=== PATIENT | female | born 1985 | race Caucasian/White ===

== ENCOUNTER 2016-12-13 17:13 | Emergency (ER) | payer MEDICAID ==
[~2016-12-13] VITALS: Ht 165.1 cm; Wt 65.8 kg
[2016-12-13 17:17] VITALS: BP 123/95
--- NOTE | 2016-12-13 17:25 | NUR ---
Patient ambulated to bed 7. RN evaluating patient at bedside.
--- NOTE | 2016-12-13 17:38 | NUR ---
PT PRESENTS TO ER W/C/O VAGINAL/PELVIC PAIN X3 DAYS.PT STATES SHE HAS PAINFUL URINATION.DENIES FEVER/CP/SOB;AAOX4;NO ACUTE DISTRESS NOTED AT THIS TIME;SKIN IS PINK,WARM TO TOUCH AND DRY;POSITION FOR COMFORT;HOB ELEVATED;NEEDS ATTENDED;SAFETY MEASURES DONE;MD MADE AWARE OF PT'S CONDITION.
--- NOTE | 2016-12-13 17:42 | NUR ---
DR MIRANDA AT BEDSIDE
--- NOTE | 2016-12-13 17:45 | NUR ---
US AT BEDSIDE
[2016-12-13] MEDS ORDERED: MECLIZINE 25 MG TAB PO ONE (18:05)
--- NOTE | 2016-12-13 18:34 | NUR ---
PT LYING ON BED COMFORTABLY;NO ACUTE DISTRESS NOTED AT THIS TIME;WILL CONTINUE TO MONITOR PT.
[2016-12-13] MEDS ORDERED: cefTRIAXone 250 MG in LIDOCAINE 1% ED 0.9 ML IM ONE (18:35)
[2016-12-13] MEDS ORDERED: AZITHROMYCIN 250 MG TAB PO ONE (18:35)
[2016-12-13] MEDS ORDERED: fentaNYL 0.05 MG/ML VIAL IM ONE (18:35)
--- NOTE | 2016-12-13 19:27 | NUR ---
Patient discharged with v/s stable. Written and verbal after care instructions given and explained. Patient alert, oriented and verbalized understanding of instructions. Ambulatory with steady gait. All questions addressed prior to discharge. ID band removed. Patient advised to follow up with PMD. Rx of MIRALAX,MOTRIN,NORCO,AND BACTRIM given. Patient educated on indication of medication including possible reaction and side effects. Opportunity to ask questions provided and answered.
[2016-12-13 19:29] VITALS: BP 123/95
== END 2016-12-13 19:29 | disposition home or self-care (01) ==
LOC: MED 17:13
DX: N39.0 Urinary tract infection, site not specified (principal); K59.00 Constipation, unspecified
CPT/HCPCS: 76856; 81002; 81025; 96372; 99284; J0696; J2001; J3010; Q0092

== ENCOUNTER 2019-04-22 19:07 | Emergency (ER) | payer MEDICAID ==
[~2019-04-22] VITALS: Ht 162.6 cm; Wt 68.0 kg
[2019-04-22 19:16] VITALS: BP 129/89
--- NOTE | 2019-04-22 19:16 | NUR ---
TO BED # 09 AMBULATORY
[2019-04-22] MEDS ORDERED: KETOROLAC 30 MG/ML VIAL IM ONE ×2 (19:30→22:00)
--- NOTE | 2019-04-22 19:30 | NUR ---
PT PRESENTED TO ED C/O LOWER ABDOMINAL PAIN 04/22 THAT RADIATES TO THE BACK, C/O PAIN UPON URINATION WITH NAUSEA, BLOATING, NO VOMITING, NO DIARRHEA, FEELING FATIGUE FOR 5 DAYS. AAOX4, GCS 15, RR EVEN UNLABORED, ABDOMEN SOFT TO TOUCH, ED MD DR PINTO MADE AWARE, WILL CONTINUE TO MONITOR CLOSELY, BED IN LOWEST POSITION, SIDERAIL UP.
--- NOTE | 2019-04-22 19:41 | NUR ---
US AT BEDSIDE.
--- NOTE | 2019-04-22 22:02 | NUR ---
X-Ray at bedside.
--- NOTE | 2019-04-22 22:02 | NUR ---
XRAY AT BEDSIDE.
--- NOTE | 2019-04-22 22:25 | NUR ---
Dr. Jacinto examining patient.
[2019-04-22 22:35] VITALS: BP 128/76
--- NOTE | 2019-04-22 22:35 | NUR ---
Patient discharged with v/s stable. Written and verbal after care instructions given and explained. Patient alert, oriented and verbalized understanding of instructions. Ambulatory with steady gait. All questions addressed prior to discharge. ID band removed. Patient advised to follow up with PMD. Rx of BENTYL 20MG AND NAPROSYN 500MG given. Patient educated on indication of medication including possible reaction and side effects. Opportunity to ask questions provided and answered.
[2019-04-25 06:07] LABS: CHLAMYDIA TRACHOMATIS AMP DNA Negative (Negative)
== END 2019-04-22 22:35 | disposition home or self-care (01) ==
LOC: MED 19:07
DX: N83.202 Unspecified ovarian cyst, left side (principal); N83.201 Unspecified ovarian cyst, right side
CPT/HCPCS: 36415; 74018; 76830; 81002; 81025; 96372; 99284; J1885; Q0092; 87491

== ENCOUNTER 2019-11-07 08:48 | Emergency (ER) | payer MEDICAID ==
[~2019-11-07] VITALS: Ht 162.6 cm; Wt 63.5 kg
[2019-11-07 08:53] VITALS: BP 127/81
--- NOTE | 2019-11-07 08:59 | NUR ---
RECEIVED A 34/F FROM [facility] FOR COLD S/SX X 4 DAYS. PT REPORTS THAT SHE HAS BEEN CONGESTED WITH COUGH AND GENERALIZED HEADACHE WITHIN THE LAST 4 DAYS. LUNG SOUNDS CLEAR BILATERALLY. NO DISTRESS NOTED. IN BED FOR MSE.
[2019-11-07 09:26] VITALS: BP 127/81
--- NOTE | 2019-11-07 09:26 | NUR ---
Patient discharged with v/s stable. Written and verbal after care instructions given and explained. Patient alert, oriented and verbalized understanding of instructions. Ambulatory with steady gait. All questions addressed prior to discharge. ID band removed. Patient advised to follow up with PMD. Rx of CLARITIN AND PROMETHAZINE DM given. Patient educated on indication of medication including possible reaction and side effects. Opportunity to ask questions provided and answered.
== END 2019-11-07 09:26 | disposition home or self-care (01) ==
LOC: MED 08:48
DX: B34.9 Viral infection, unspecified (principal)
CPT/HCPCS: 99283

== ENCOUNTER → 2023-05-06 | Emergency (ER) | payer MEDICAID ==
[~2023-05-06] VITALS: Ht 165.1 cm; Wt 72.6 kg
[2023-05-06 11:44] VITALS: BP 131/86; PULSE 104; RESP 18; TEMP 98.1; O2SAT 95
== END | disposition home or self-care (01) ==
LOC: MED 11:34
DX: H57.12 Ocular pain, left eye (principal); H53.8 Other visual disturbances
CPT/HCPCS: 99281